=== PATIENT | male | born 1970 | race Caucasian/White ===

== ENCOUNTER 2019-02-14 13:35 | Emergency (ER) | payer SELFPAY ==
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
[2019-02-14] MEDS ORDERED: DIPHTH/TETANUS/ACEL. PERTUSSIS IM ONE (14:00)
[2019-02-14] MEDS ORDERED: fentaNYL CITR 100 MCG/2 ML AMP IVP ONE (14:00)
[2019-02-14] MEDS ORDERED: IOPAMIDOL 76% 150 ML INFUS BTL 150 ML ONE (14:11)
[2019-02-14] MEDS ORDERED: ONDANSETRON 4 MG/2 ML VIAL IVP ONE (14:15)
[2019-02-14] MEDS ORDERED: NS(*) 0.9% 1000 ML BAG 1,000 ML IV ONE (14:15)
[2019-02-14 14:18] LABS: PLATELET COUNT, AUTOMATED 288 K/uL (150-450)
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
[2019-02-14 16:30] VITALS: BP 101/65
[2019-02-14] MEDS ORDERED: TRAM-420 PO (16:37)
== END 2019-02-14 16:48 | disposition home or self-care (01) ==
LOC: ER 13:55
DX: M54.6 Pain in thoracic spine (principal); M54.2 Cervicalgia; V19.9XXA Pedal cyclist (driver) (passenger) injured in unspecified traffic accident, initial encounter
CPT/HCPCS: 70450; 71260; 72125; 74177; 85025; 90715; 96361; 96372; 96374; 96375; 99284; J2405; J3010; J7030; L0172; Q9967; 82040; 82247; 82310; 82374; 82435; 82565; 82947; 84075; 84132; 84155; 84295; 84450; 84460; 84520

== ENCOUNTER 2019-03-26 14:10 | Emergency (ER) | payer SELFPAY ==
[~2019-03-26 14:10] MED LIST: TRAM-420 PO
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
[2019-03-26 14:30] VITALS: BP 129/99
--- NOTE | 2019-03-26 15:03 | RADIOLOGY IMAGING REPORT ---
FACILITY: [facility] - [place] PATIENT NAME: Tulio Baeza : 1970 MR: [id number] V: [id number] EXAM DATE: ORDERING PHYSICIAN: SARAH ROMANO TECHNOLOGIST: Location: [facility] Patient: Tulio Baeza : 1970 Visit/Account:[id number] Date of Sevice: 03/26/2019 INDICATION: pain, swelling. DATE: 03/26/2019 2:56 PM. TECHNIQUE: HAND COMPLETE RIGHT COMPARISON: None FINDINGS: There is a transverse fracture at the distal fifth metacarpal shaft. Mild apex dorsal angul ation. No other fracture identified. IMPRESSION: Mild dorsal angulation of the fifth metacarpal shaft fracture. Report Dictated By: Ariadna Ascencio MD at 03/26/2019 2:56 PM Report E-Signed By: Ariadna Ascencio MD at 03/26/2019 2:58 PM WSN:[id number]
== END 2019-03-26 14:58 | disposition home or self-care (01) ==
LOC: ER 14:22
DX: S62.356A Nondisplaced fracture of shaft of fifth metacarpal bone, right hand, initial encounter for closed fracture (principal)
CPT/HCPCS: 73130; 99283; L3763

== ENCOUNTER 2019-05-08 10:07 | Emergency (ER) | payer SELFPAY ==
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
--- NOTE | 2019-05-08 10:52 | RADIOLOGY IMAGING REPORT ---
FACILITY: [facility] - [place] PATIENT NAME: Tulio Baeza : 1970 MR: [id number] V: [id number] EXAM DATE: ORDERING PHYSICIAN: ASHISH MURILLO TECHNOLOGIST: [place] [facility] [place]: Tulio Baeza : 1970 Visit/Account:[id number] Date of Sevice: 05/08/2019 SHOULDER MIN 2 VIEWS RIGHT HISTORY: COMPARISON: None FINDINGS: AP views of the right shoulder in internal and external rotation were obtained. A Y view w as also obtained. There is no evidence of acute fracture or dislocation. There are no significant d egenerative changes. The acromioclavicular joint is normal in appearance. IMPRESSION: No acute osseous abnormality Report Dictated By: Tulio Edwards at 05/08/2019 10:43 AM Report E-Signed By: Tulio Edwards at 05/08/2019 10:43 AM WSN:[id number]
[2019-05-08] MEDS ORDERED: KET10 PO (11:01)
[2019-05-08 11:15] VITALS: BP 113/84
== END 2019-05-08 11:17 | disposition home or self-care (01) ==
LOC: ER 10:16
DX: S43.421A Sprain of right rotator cuff capsule, initial encounter (principal); V19.9XXA Pedal cyclist (driver) (passenger) injured in unspecified traffic accident, initial encounter
CPT/HCPCS: 73030; 99283; A4565